=== PATIENT | female | born 1935 | race American Indian/Alaskan Native ===

== ENCOUNTER 2017-08-28 08:51 | Inpatient (IN) | payer MEDICARE ==
[2017-08-28 10:18] LABS: Alanine Aminotransferase 11 units/L (7-56); Albumin/Globulin Ratio 1.4 %; Alkaline Phosphatase 67 units/L (35-129); BUN/Creatinine Ratio 25; Blood Urea Nitrogen 27 mg/dL (7-17); Calcium 9.4 mg/dL (8.4-10.2); Carbon Dioxide 21 mmol/L (22-30); Glucose 134 mg/dL (65-100); Total Protein 6.8 g/dL (6.3-8.2)
[2017-08-28 10:19] LABS: Anion Gap 21 mmol/L; Chloride 104.3 mmol/L (98-107); Potassium 4.3 mmol/L (3.6-5.0); Sodium 142 mmol/L (137-145)
[2017-08-28] MEDS ORDERED: NITRO-BID 2% TP ONE (10:21)
[2017-08-28] MEDS ORDERED: ASPIRIN PO ONE (10:21)
--- NOTE | 2017-08-28 10:26 | Emergency Department Report ---
HPI - General Chief Complaint: Chest Pain Time Seen by Provider: 08/28/17 10:11 - HPI HPI: Room 5 The patient is an 81-year-old female presenting with chief complaint of chest pain. The patient states her symptoms began last night with substernal chest pain described as "gas pain." Patient states she began feeling dizzy and had nausea without vomiting associated with shortness of breath. Patient denies diaphoresis. Patient states her last stress test 2 years ago. Patient status post CABG in 2005. Patient states she had her last AR 2012 Location: Chest, see above Duration: Intermittent since last night Quality: "Gas" Severity: Currently 0/10 Modifying factors: [see above] Context: [see above] Mode of transportation: [not driving] ED Past Medical Hx - Past Medical History Previous Medical History?: Yes Hx Hypertension: Yes Hx Heart Attack/AMI: Yes (X 2) Hx Diabetes: Yes (Not on medication) Hx Arthritis: Yes Additional medical history: Gout, Carotid blockage. - Surgical History Past Surgical History?: Yes Hx Open Heart Surgery: Yes - Family History Family history: no significant - Social History Smoking Status: Former Smoker (none 30 years) Substance Use Type: None - Medications Home Medications: Home Medications Medication Instructions Recorded Confirmed Last Taken Type Amlodipine Besylate [Norvasc] 5 mg PO QDAY 08/28/17 08/28/17 08/27/17 History Aspirin [Adult Low Dose Aspirin EC] 81 mg PO QDAY 08/28/17 08/28/17 08/27/17 History Cholecalciferol (Vitamin D3) 5,000 unit PO QDAY 08/28/17 08/28/17 08/27/17 History [Vitamin D3] Clopidogrel Bisulfate [Plavix] 75 mg PO DAILY 08/28/17 08/28/17 08/27/17 History Colchicine [Colcrys] 0.6 mg PO BID 08/28/17 08/28/17 08/27/17 History Cyanocobalamin (Vitamin B-12) 2,000 mcg PO QDAY 08/28/17 08/28/17 08/27/17 History [Vitamin B-12] Docusate Sodium [Stool Softener] 100 mg PO QDAY 08/28/17 08/28/17 08/27/17 History Ferrous Sulfate [Iron] 325 mg PO QDAY 08/28/17 08/28/17 08/27/17 History Simvastatin [Zocor TAB] 20 mg PO QHS 08/28/17 08/28/17 08/27/17 History hydrALAZINE [Apresoline] 25 mg PO QID 08/28/17 08/28/17 08/27/17 History ED Review of Systems ROS: Stated complaint: HBP Other details as noted in HPI Constitutional: denies: diaphoresis Respiratory: shortness of breath Cardiovascular: chest pain Gastrointestinal: nausea. denies: vomiting Physical Exam - Physical Exam Vital Signs: Vital Signs 08/28/17 08/28/17 08/28/17 09:04 09:13 09:16 Temperature Pulse Rate 77 79 Respiratory 13 16 13 Rate Blood Pressure 178/84 178/84 O2 Sat by Pulse 99 100 Oximetry 08/28/17 08/28/17 09:17 09:43 Temperature 98.2 F Pulse Rate 74 Respiratory 16 Rate Blood Pressure 178/85 O2 Sat by Pulse 96 Oximetry Physical Exam: GENERAL: The patient is well-developed well-nourished female sitting on stretcher not appearing to be in acute distress. [] HEENT: Normocephalic. Atraumatic. Extraocular motions are intact. Patient has moist mucous membranes. NECK: Supple. Trachea midline CHEST/LUNGS: Clear to auscultation. There is no respiratory distress noted. HEART/CARDIOVASCULAR: Regular. There is no tachycardia. There is no gallop rub or murmur. ABDOMEN: Abdomen is soft, nontender. Patient has normal bowel sounds. There is no abdominal distention. SKIN: There is no rash. There is no diaphoresis. NEURO: The patient is awake, alert, and oriented. The patient is cooperative. The patient has normal speech MUSCULOSKELETAL: There is no evidence of acute injury. ED Course Vital Signs 08/28/17 08/28/17 08/28/17 09:04 09:13 09:16 Temperature Pulse Rate 77 79 Respiratory 13 16 13 Rate Blood Pressure 178/84 178/84 O2 Sat by Pulse 99 100 Oximetry 08/28/17 08/28/17 09:17 09:43 Temperature 98.2 F Pulse Rate 74 Respiratory 16 Rate Blood Pressure 178/85 O2 Sat by Pulse 96 Oximetry ED Medical Decision Making - Lab Data Result diagrams: 08/28/17 10:30 08/28/17 09:40 - EKG Data -: EKG Interpreted by Me EKG shows normal: sinus rhythm Rate: normal - EKG Data When compared to previous EKG there are: previous EKG unavailable Interpretation: other (first-degree AV block) - Radiology Data Radiology results: report reviewed (chest x-ray), image reviewed (chest x-ray) interpreted by me: Chest x-ray-no focal infiltrates, no pneumothorax AP CHEST: HISTORY: chest pain Previous CABG changes are noted. AP view of the chest demonstrates a normal mediastinal and cardiac contour with clear lungs and normal bony and soft tissue structures. IMPRESSION: No acute cardiopulmonary process identified. Transcribed By: TTR Dictated By: TANVIR ROSADO JR, MD Electronically Authenticated By: TANVIR ROSADO JR, MD Signed Date/Time: 08/28/171043 DD/ 43 TD/TT: 08/28/171043 - Differential Diagnosis ACS, GERD, pericarditis Critical care attestation.: If time is entered above; I have spent that time in minutes in the direct care of this critically ill patient, excluding procedure time. ED Disposition Clinical Impression: Chest pain Disposition: -09 OP ADMIT IP TO THIS HOSP Is pt being admited?: Yes Does the pt Need Aspirin: Yes Condition: Fair Instructions: Chest Pain (ED) Referrals: PRIMARY CARE, [Primary Care Provider] - 3-5 Days Time of Disposition: 11:05 (hospitalist paged (Dr. Miranda))
--- NOTE | 2017-08-28 10:49 | XRay Report ---
AP CHEST: HISTORY: chest pain Previous CABG changes are noted. AP view of the chest demonstrates a normal mediastinal and cardiac contour with clear lungs and normal bony and soft tissue structures. IMPRESSION: No acute cardiopulmonary process identified.
[2017-08-28 10:53] LABS: Basophils % (Auto) 0.4 % (0.0-1.8); Eosinophils % (Auto) 2.8 % (0.0-4.3); Hematocrit 34.3 % (30.3-42.9); Hemoglobin 10.8 gm/dl (10.1-14.3); Mean Corpuscular HGB Conc 32 % (30-34); Mean Corpuscular Hemoglobin 29 pg (28-32); Mean Corpuscular Volume 91 fl (79-97); Platelet Count 182 K/mm3 (140-440); Red Blood Count 3.77 M/mm3 (3.65-5.03); White Blood Count 5.3 K/mm3 (4.5-11.0)
--- NOTE | 2017-08-28 13:13 | History and Physical Report ---
History of Present Illness Date of admission: 08/28/17 11:53 Chief complaint: I have pain in my chest History of present illness: 81 YO Female with HTN, [place], DM, OA, CAD S/P CABG presents to ED for evaluation. Pt states that she has pain in her chest. The patient states her symptoms began last night and have continued since it began. Pain is 3-6/10, substernal, intermittent, nonradiating, not worsened with exertion, or relieved with rest. Pt acknowledges feeling dizzy, nauseated, and short of breath. Pt denies diaphoresis, palpitations, syncope, BRBPR, recent ill contacts, productive cough , hemoptysis, unintentional weight loss, night sweats. Pt seen and evaluated in ED and found to have symptoms consistent with ACS. Pt admitted to telemetry. Past History Past Medical History: acute [place], arthritis, CAD, diabetes, hypertension Past Surgical History: CABG Social history: Family history: diabetes, hypertension Medications and Allergies Allergies Allergy/AdvReac Type Severity Reaction Status Date / Time No Known Allergies Allergy Unverified 08/28/17 09:28 Home Medications Medication Instructions Recorded Confirmed Last Taken Type Amlodipine Besylate [Norvasc] 5 mg PO QDAY 08/28/17 08/28/17 08/27/17 History Aspirin [Adult Low Dose Aspirin EC] 81 mg PO QDAY 08/28/17 08/28/17 08/27/17 History Cholecalciferol (Vitamin D3) 5,000 unit PO QDAY 08/28/17 08/28/17 08/27/17 History [Vitamin D3] Clopidogrel Bisulfate [Plavix] 75 mg PO DAILY 08/28/17 08/28/17 08/27/17 History Colchicine [Colcrys] 0.6 mg PO BID 08/28/17 08/28/17 08/27/17 History Cyanocobalamin (Vitamin B-12) 2,000 mcg PO QDAY 08/28/17 08/28/17 08/27/17 History [Vitamin B-12] Docusate Sodium [Stool Softener] 100 mg PO QDAY 08/28/17 08/28/17 08/27/17 History Ferrous Sulfate [Iron] 325 mg PO QDAY 08/28/17 08/28/17 08/27/17 History Simvastatin [Zocor TAB] 20 mg PO QHS 08/28/17 08/28/17 08/27/17 History hydrALAZINE [Apresoline] 25 mg PO QID 08/28/17 08/28/17 08/27/17 History Review of Systems Constitutional: no weight loss, no weight gain, no fever, no chills Ears, nose, mouth and throat: no ear pain, no ear discharge, no tinnitis, no decreased hearing, no nose pain, no nasal congestion, no nasal discharge Breasts: no change in shape, no swelling, no mass Cardiovascular: chest pain, shortness of breath, no orthopnea, no palpitations, no rapid/irregular heart beat, no dyspnea on exertion Respiratory: no cough, no cough with sputum, no excessive sputum, no hemoptysis Gastrointestinal: no abdominal pain, no nausea, no vomiting, no diarrhea, no constipation Genitourinary Female: no dysmenorrhea, no pelvic pain, no flank pain, no menorrhagia, no dysuria, no urinary frequency, no urgency Rectal: no pain, no incontinence, no bleeding Musculoskeletal: no neck stiffness, no neck pain, no shooting arm pain, no arm numbness/tingling Integumentary: no rash, no pruritis, no redness, no sores, no wounds Neurological: no paralysis, no weakness, no parathesias, no numbness, no tingling, no seizures Psychiatric: no memory loss, no change in sleep habits, no sleep disturbances, no insomnia, no hypersomnia, no change in appetite, no change in libido Endocrine: no cold intolerance, no heat intolerance, no polyphagia, no excessive thirst, no polydipsia, no polyuria Hematologic/Lymphatic: no easy bruising, no easy bleeding Allergic/Immunologic: no urticaria, no allergic rhinitis, no wheezing Exam - Constitutional Vitals: Temp Pulse Resp BP Pulse Ox 98.2 F 68 17 131/76 100 08/28/17 09:17 08/28/17 12:30 08/28/17 12:30 08/28/17 12:30 08/28/17 12:30 General appearance: Present: mild distress - EENT Eyes: Present: PERRL ENT: hearing intact, clear oral mucosa - Neck Neck: Present: supple, normal ROM - Respiratory Respiratory: bilateral: diminished, rhonchi - Cardiovascular Heart Sounds: Present: S1 & S2. Absent: rub, click - Extremities Extremities: pulses symmetrical, No edema Peripheral Pulses: within normal limits - Abdominal General gastrointestinal: Present: soft, non-tender, non-distended, normal bowel sounds Female genitourinary: Present: normal - Integumentary Integumentary: Present: clear, warm, dry - Musculoskeletal Musculoskeletal: gait normal, strength equal bilaterally - Psychiatric Psychiatric: appropriate mood/affect, intact judgment & insight - Neurologic Neurologic: CNII-XII intact, moves all extremities Results - Labs CBC & Chem 7: 08/28/17 10:30 08/28/17 09:40 Labs: Abnormal lab results 08/28/17 08/28/17 Range/Units 09:40 10:30 RDW 13.0 L (13.2-15.2) % [place] % (Auto) 7.8 H (0.0-7.3) % Lymph # 0.8 L (1.2-5.4) K/mm3 Seg Neutrophils % 73.3 H (40.0-70.0) % Carbon Dioxide 21 L (22-30) mmol/L BUN 27 H (7-17) mg/dL Glucose 134 H (65-100) mg/dL Assessment and Plan - Patient Problems (1) ACS (acute coronary syndrome) Current Visit: Yes Status: Acute Plan to address problem: Admit to telemetry, serial cardiac enzymes, EKG, Echo, D dimer, Cardiology consulted, morphine, supplemental oxygen, nitro tabs, aspirin (2) HTN (hypertension) Current Visit: Yes Status: Acute Plan to address problem: Monitor bp q shift, IV hydralazine prn, (3) Diabetes Current Visit: Yes Status: Acute Plan to address problem: ADA diet, insulin, accu check (4) CAD (coronary artery disease) Current Visit: Yes Status: Acute Plan to address problem: Lipid panel, low cholesterol diet, statin therapy (5) DVT prophylaxis Current Visit: Yes Status: Acute
[2017-08-28] MEDS ORDERED: SODIUM CHLORIDE FLUSH SYRINGE 10 ML IV PRN (18:38)
[2017-08-28] MEDS ORDERED: NITROSTAT SL PRN (18:38)
[2017-08-28 19:19] LABS: Basophils % (Auto) 0.6 % (0.0-1.8); Eosinophils % (Auto) 2.6 % (0.0-4.3); Hematocrit 36.2 % (30.3-42.9); Hemoglobin 11.3 gm/dl (10.1-14.3); Mean Corpuscular HGB Conc 31 % (30-34); Mean Corpuscular Hemoglobin 29 pg (28-32); Mean Corpuscular Volume 92 fl (79-97); Platelet Count 189 K/mm3 (140-440); Red Blood Count 3.93 M/mm3 (3.65-5.03); White Blood Count 6.1 K/mm3 (4.5-11.0)
[2017-08-28 19:40] LABS: Calcium 9.4 mg/dL (8.4-10.2); Chloride 103.6 mmol/L (98-107); Potassium 4.3 mmol/L (3.6-5.0)
[2017-08-29] MEDS ORDERED: HALFPRIN EC PO SCH (10:00)
[2017-08-29] MEDS ORDERED: COLCRYS PO SCH (10:00)
[2017-08-29] MEDS ORDERED: VITAMIN B-12 PO SCH (10:00)
[2017-08-29] MEDS ORDERED: ECOTRIN PO SCH (10:00)
[2017-08-29] MEDS ORDERED: VITAMIN D3 PO SCH (10:00)
[2017-08-29] MEDS ORDERED: COLACE PO SCH (10:00)
[2017-08-29] MEDS ORDERED: NON-FORMULARY (Cholecalciferol (Vitamin D3) [Vitamin D3] 5,000 UNIT) PO SCH (10:00)
[2017-08-29] MEDS ORDERED: FEOSOL PO SCH (10:00)
[2017-08-29] MEDS ORDERED: NORVASC PO SCH (10:00)
[2017-08-29] MEDS ORDERED: PLAVIX PO SCH (10:00)
[2017-08-29] MEDS ORDERED: CYANOCOBALAMIN 2000 MCG PO SCH (10:00)
[2017-08-29] MEDS ORDERED: LEXISCAN IV ONE ×2 (11:04→11:07)
--- NOTE | 2017-08-29 12:20 | Consultation ---
History of Present Illness Consult date: 08/29/17 Consult reason: chest pain History of present illness: 81 YO Female with HTN, [place], DM, OA, CAD S/P CABG presents with chest pain and dizziness. Patient is s/p CABG 2005. She is currently asymptomatic Past History Past Medical History: acute [place], arthritis, CAD, diabetes, hypertension Past Surgical History: CABG Social history: Family history: diabetes, hypertension Medications and Allergies Allergies Allergy/AdvReac Type Severity Reaction Status Date / Time zolpidem [From Ambien] AdvReac Unknown Verified 08/29/17 07:28 Home Medications Medication Instructions Recorded Confirmed Last Taken Type Amlodipine Besylate [Norvasc] 5 mg PO QDAY 08/28/17 08/28/17 08/27/17 History Aspirin [Adult Low Dose Aspirin EC] 81 mg PO QDAY 08/28/17 08/28/17 08/27/17 History Cholecalciferol (Vitamin D3) 5,000 unit PO QDAY 08/28/17 08/28/17 08/27/17 History [Vitamin D3] Clopidogrel Bisulfate [Plavix] 75 mg PO DAILY 08/28/17 08/28/17 08/27/17 History Colchicine [Colcrys] 0.6 mg PO BID 08/28/17 08/28/17 08/27/17 History Cyanocobalamin (Vitamin B-12) 2,000 mcg PO QDAY 08/28/17 08/28/17 08/27/17 History [Vitamin B-12] Docusate Sodium [Stool Softener] 100 mg PO QDAY 08/28/17 08/28/17 08/27/17 History Ferrous Sulfate [Iron] 325 mg PO QDAY 08/28/17 08/28/17 08/27/17 History Simvastatin [Zocor TAB] 20 mg PO QHS 08/28/17 08/28/17 08/27/17 History hydrALAZINE [Apresoline] 25 mg PO QID 08/28/17 08/28/17 08/27/17 History Active Meds: Active Medications Amlodipine Besylate (Norvasc) 5 mg PO QDAY [facility] Last Admin: 08/29/17 12:09 Dose: Not Given Aspirin (Ecotrin) 325 mg PO QDAY [facility] Last Admin: 08/29/17 12:09 Dose: Not Given Aspirin (Halfprin Ec) 81 mg PO QDAY [facility] Last Admin: 08/29/17 12:09 Dose: Not Given Cholecalciferol (Vitamin D3) 5,000 unit PO DAILY [facility] Last Admin: 08/29/17 12:09 Dose: Not Given Clopidogrel Bisulfate (Plavix) 75 mg PO DAILY [facility] Last Admin: 08/29/17 12:09 Dose: Not Given Colchicine (Colcrys) 0.6 mg PO BID [facility] Last Admin: 08/29/17 12:08 Dose: Not Given Cyanocobalamin (Vitamin B-12) 2,000 mcg PO QDAY [facility] Last Admin: 08/29/17 12:09 Dose: Not Given Docusate Sodium (Colace) 100 mg PO QDAY [facility] Last Admin: 08/29/17 12:08 Dose: Not Given Ferrous Sulfate (Feosol) 325 mg PO QDAY [facility] Last Admin: 08/29/17 12:09 Dose: Not Given Nitroglycerin (Nitrostat) 0.4 mg SL Q5M PRN PRN Reason: Chest Pain Pravastatin Sodium (Pravachol) 40 mg PO QHS [facility] Sodium Chloride (Sodium Chloride Flush Syringe 10 Ml) 10 ml IV PRN PRN PRN Reason: LINE FLUSH Review of Systems All systems: negative Physical Examination Vital Signs BP Pulse Ox 100/51 97 08/28/17 07:03 08/28/17 07:03 General appearance: no acute distress HEENT: Positive: PERRL Neck: Positive: neck supple Cardiac: Positive: Reg Rate and Rhythm Lungs: Positive: Normal Exam Results 08/28/17 19:04 08/28/17 19:04 Lipids 08/28/17 Range/Units 19:04 Triglycerides 98 (2-149) mg/dL Cholesterol 128 (50-199) mg/dL HDL Cholesterol 58 (40-59) mg/dL Cholesterol/HDL Ratio 2.20 % CBC 08/28/17 Range/Units 19:04 WBC 6.1 (4.5-11.0) K/mm3 RBC 3.93 (3.65-5.03) M/mm3 Hgb 11.3 (10.1-14.3) gm/dl Hct 36.2 (30.3-42.9) % Plt Count 189 (140-440) K/mm3 Lymph # 2.0 (1.2-5.4) K/mm3 [place] # 0.6 (0.0-0.8) K/mm3 Eos # 0.2 (0.0-0.4) K/mm3 Baso # 0.0 (0.0-0.1) K/mm3 Comprehensive Metabolic Panel 08/28/17 Range/Units 19:04 Sodium 143 (137-145) mmol/L Potassium 4.3 (3.6-5.0) mmol/L Chloride 103.6 (98-107) mmol/L Carbon Dioxide 24 (22-30) mmol/L BUN 24 H (7-17) mg/dL Creatinine 1.1 (0.7-1.2) mg/dL Glucose 88 (65-100) mg/dL Calcium 9.4 (8.4-10.2) mg/dL EKG interpretations - Telemetry EKG Rhythm: Sinus Rhythm Assessment and Plan Chest Pain Normal MPI this admission with a LVEF > 60% Dizziness First degree AV block on ECG - no pauses Typ0e II DM Systemic Hypertension CAD s/p CABG 2005 Recommendations: No further cardiac work-up Follow-up with Dr Kate as outpatient
[2017-08-29 12:45] VITALS: BP 198/82
--- NOTE | 2017-08-29 13:58 | Discharge Summary ---
Providers - Providers Date of Admission: 08/28/17 11:53 Date of discharge: 08/29/17 Attending physician: CELSO MANZO MD 08/28/17 Consult to Cardiac Rehabilitation [CONS] Routine Reason For Exam: Phase I 08/28/17 18:38 Consult to Cardiology [CONS] Routine Consulting Provider: CHAD PANDEY Reason For Exam: acs Primary care physician: MEDICAID BILLING CLERK Hospitalization Condition: Fair Pertinent studies: Chest x-ray revealed no acute cardiopulmonary process Procedures: Normal MPI with LVEF> 60%. Hospital course: 81 YO Female with HTN, [place], DM, OA, CAD S/P CABG presents to ED for evaluation. Pt states that she has pain in her chest. The patient states her symptoms began last night and have continued since it began. Pain is 3-6/10, substernal, intermittent, nonradiating, not worsened with exertion, or relieved with rest. Pt acknowledges feeling dizzy, nauseated, and short of breath. Pt denies diaphoresis, palpitations, syncope, BRBPR, recent ill contacts, productive cough , hemoptysis, unintentional weight loss, night sweats. Patient was treated with Nitro-Bid and resumed home medications. Patient was clinically stable for discharge. Discharge diagnoses Chest pain Dizziness Type 2 diabetes Systemic hypertension Coronary artery disease DVT prophylaxis Disposition: DC-01 TO HOME OR SELFCARE Time spent for discharge: 32 mins Core Measure Documentation - Palliative Care Palliative Care/ Comfort Measures: Not Applicable - Core Measures Any of the following diagnoses?: none Exam - Constitutional Vitals: Temp Pulse Resp BP Pulse Ox 98.4 F 92 H 18 198/82 100 08/29/17 08:28 08/29/17 11:22 08/29/17 10:00 08/29/17 11:22 08/29/17 10:00 General appearance: Present: no acute distress - EENT Eyes: Present: PERRL ENT: hearing intact, clear oral mucosa - Neck Neck: Present: supple, normal ROM - Respiratory Respiratory effort: normal Respiratory: bilateral: CTA - Cardiovascular Heart Sounds: Present: S1 & S2. Absent: rub, click - Extremities Extremities: pulses symmetrical, No edema Peripheral Pulses: within normal limits - Abdominal General gastrointestinal: Present: soft, non-tender, non-distended, normal bowel sounds Female genitourinary: Present: deferred - Rectal Rectal Exam: deferred - Integumentary Integumentary: Present: clear, warm, dry - Musculoskeletal Musculoskeletal: gait normal, strength equal bilaterally - Psychiatric Psychiatric: appropriate mood/affect, intact judgment & insight - Neurologic Neurologic: CNII-XII intact, moves all extremities - Allied Health Allied health notes reviewed: nursing Plan Activity: fall precautions Weight Bearing Status: Weight Bear as Tolerated Diet: low fat, low cholesterol, low salt Follow up with: PRIMARY CAREMD [Primary Care Provider] - 3-5 Days CHAD PANDEY MD [Staff Physician] - 7 Days Prescriptions: amLODIPine [Norvasc] 5 mg PO QDAY #30 tablet
[2017-08-29] MEDS ORDERED: NON-FORMULARY (Simvastatin 20 MG) PO SCH (22:00)
[2017-08-29] MEDS ORDERED: PRAVACHOL PO SCH (22:00)
--- NOTE | 2017-08-30 00:31 | Treadmill Report ---
ORDERING PHYSICIAN: Elzbieta Carballo MD FINDINGS: There is no scintigraphic evidence of myocardial ischemia. The left ventricle is normal in size and systolic function. The left ventricular ejection fraction is measured at greater than 60%. Normal wall motion and wall thickening is noted on gated imaging. CONCLUSION: Normal perfusion scan. JOB# [id number] MARITZA/NTS
--- NOTE | 2017-09-10 09:12 | Query- Chest Pain ---
Abel Murry Ruben Date: 09/10/17 Smokehouse Operator/CDS: Jose Rsamantha / [place] Phone#:[phone] Exercise your independent professional judgment when responding to query. Questions asked do not imply a particular answer is desired or expected. We greatly appreciate your clarification on this issue. Clinical Documentation States: 81 year old female was admitted on 08/28/17 The H&P (Dr. Miranda) states " 81 YO Female with HTN, [place], DM, OA, CAD S/P CABG presents to ED for evaluation. Pt states that she has pain in her chest - Patient Problems (1) ACS (acute coronary syndrome) (4) CAD (coronary artery disease) " The Discharge summary ([place]) states " Discharge diagnoses Chest pain " Please document the etiology of Chest Pain: [ ] Myocardial Infarction [ ] Pneumonia [ ] Mediastinitis [ ] Costochondritis [ ] Pulmonary Embolism [ x] Coronary Artery Disease [ ] GERD [ ] Other: [ ] Comment/Explanation: Present on Admission: [x ] Yes (Y) [ ] Clinically undeterminable (W) [ ] No(N) Please document response in your Progress Notes and/or Discharge Summary and indicate if the condition was present on admission. DAVID
== END 2017-08-29 14:27 | disposition home or self-care (01) | DRG 305 ==
LOC: ED 08:51 → 4A 11:53 → EEVIPCON 11:53 → 4A 12:28
PROVIDERS: ADMIT Internal Medicine; ATTEND Internal Medicine
DX: I16.0 Hypertensive urgency (principal); I25.10 Atherosclerotic heart disease of native coronary artery without angina pectoris; I10 Essential (primary) hypertension; E11.9 Type 2 diabetes mellitus without complications; Z88.8 Allergy status to other drugs, medicaments and biological substances; I25.2 Old myocardial infarction; M10.9 Gout, unspecified; Z87.891 Personal history of nicotine dependence; Z79.82 Long term (current) use of aspirin; Z79.899 Other long term (current) drug therapy; Z83.3 Family history of diabetes mellitus; Z82.49 Family history of ischemic heart disease and other diseases of the circulatory system; I44.0 Atrioventricular block, first degree
CPT/HCPCS: 36415; 71010; 78452; 80048; 80053; 80061; 82962; 84484; 85025; 85379; 93005; 93010; 93017; 93306; A9502; J2785

== ENCOUNTER 2020-05-16 14:39 | Emergency (ER) | payer MEDICARE ==
--- NOTE | 2020-05-16 15:31 | Emergency Department Report ---
ED General Adult HPI - General Chief complaint: Dyspnea/Respdistress Stated complaint: TORRI/BODY ACHES/CONSTIPATION Time Seen by Provider: 05/16/20 15:22 Source: patient, EMS Mode of arrival: Stretcher Limitations: Altered Mental Status - History of Present Illness Initial comments: Patient is 84 years old female with history of dementia, hypertension diabetes and arthritis. Patient brought to the emergency room via EMS from home for evaluation of shortness of breath and constipation. Patient is really confused and unable to answer question appropriately I believe is most likely secondary to her dementia. No family member available to provide more information. Patient denied chest pain, nausea or vomiting. She stated that she is having slight shortness of breath but she has been constipated for many days. - Related Data Home Medications Medication Instructions Recorded Confirmed Last Taken Amlodipine Besylate [Norvasc] 5 mg PO QDAY 08/28/17 08/28/17 08/27/17 Aspirin [Adult Low Dose Aspirin EC] 81 mg PO QDAY 08/28/17 08/28/17 08/27/17 Cholecalciferol (Vitamin D3) 5,000 unit PO QDAY 08/28/17 08/28/17 08/27/17 [Vitamin D3 5,000 UNIT] Clopidogrel Bisulfate [Plavix] 75 mg PO DAILY 08/28/17 08/28/17 08/27/17 Colchicine [Colcrys] 0.6 mg PO BID 08/28/17 08/28/17 08/27/17 Cyanocobalamin (Vitamin B-12) 2,000 mcg PO QDAY 08/28/17 08/28/17 08/27/17 [Vitamin B-12] Docusate Sodium [Stool Softener] 100 mg PO QDAY 08/28/17 08/28/17 08/27/17 Ferrous Sulfate [Iron 325 MG] 325 mg PO QDAY 08/28/17 08/28/17 08/27/17 Simvastatin (Nf) [Zocor TAB] 20 mg PO QHS 08/28/17 08/28/17 08/27/17 hydrALAZINE [Apresoline TAB] 25 mg PO QID 08/28/17 08/28/17 08/27/17 Previous Rx's Medication Instructions Recorded Last Taken Type amLODIPine 5 mg PO QDAY #30 tablet 08/29/17 Unknown Rx Allergies Allergy/AdvReac Type Severity Reaction Status Date / Time zolpidem [From Ambien] AdvReac Unknown Verified 08/29/17 07:28 ED Review of Systems ROS: Stated complaint: TORRI/BODY ACHES/CONSTIPATION Other details as noted in HPI Comment: All other systems reviewed and negative Constitutional: denies: chills, fever Respiratory: shortness of breath. denies: cough, orthopnea, SOB with exertion, SOB at rest, wheezing Cardiovascular: denies: chest pain, palpitations, dyspnea on exertion Gastrointestinal: constipation. denies: abdominal pain, nausea, vomiting, d iarrhea, hematemesis, melena, hematochezia Musculoskeletal: denies: back pain Neurological: confusion. denies: headache, weakness, numbness, paresthesias ED Past Medical Hx - Past Medical History Hx Hypertension: Yes Hx Heart Attack/AMI: Yes (X 2) Hx Diabetes: Yes (Not on medication) Hx Arthritis: Yes Hx Seizures: No Hx Dementia: Yes Additional medical history: Gout, Carotid blockage. - Surgical History Hx Open Heart Surgery: Yes - Social History Smoking Status: Unknown if ever smoked - Medications Home Medications: Home Medications Medication Instructions Recorded Confirmed Last Taken Type Amlodipine Besylate [Norvasc] 5 mg PO QDAY 08/28/17 08/28/17 08/27/17 History Aspirin [Adult Low Dose Aspirin EC] 81 mg PO QDAY 08/28/17 08/28/17 08/27/17 History Cholecalciferol (Vitamin D3) 5,000 unit PO QDAY 08/28/17 08/28/17 08/27/17 History [Vitamin D3 5,000 UNIT] Clopidogrel Bisulfate [Plavix] 75 mg PO DAILY 08/28/17 08/28/17 08/27/17 History Colchicine [Colcrys] 0.6 mg PO BID 08/28/17 08/28/17 08/27/17 History Cyanocobalamin (Vitamin B-12) 2,000 mcg PO QDAY 08/28/17 08/28/17 08/27/17 History [Vitamin B-12] Docusate Sodium [Stool Softener] 100 mg PO QDAY 08/28/17 08/28/17 08/27/17 History Ferrous Sulfate [Iron 325 MG] 325 mg PO QDAY 08/28/17 08/28/17 08/27/17 History Simvastatin (Nf) [Zocor TAB] 20 mg PO QHS 08/28/17 08/28/17 08/27/17 History hydrALAZINE [Apresoline TAB] 25 mg PO QID 08/28/17 08/28/17 08/27/17 History amLODIPine 5 mg PO QDAY #30 tablet 08/29/17 Unknown Rx ED Physical Exam - General Limitations: Altered Mental Status General appearance: alert, in no apparent distress - Head Head exam: Present: atraumatic, normocephalic, normal inspection - Eye Eye exam: Present: normal appearance - ENT ENT exam: Present: normal exam, normal orophraynx, mucous membranes moist - Neck Neck exam: Present: normal inspection, full ROM. Absent: tenderness, meningismus, lymphadenopathy, thyromegaly - Respiratory Respiratory exam: Present: normal lung sounds bilaterally - Cardiovascular Cardiovascular Exam: Present: regular rate, normal rhythm, normal heart sounds - GI/Abdominal GI/Abdominal exam: Present: soft, normal bowel sounds. Absent: distended, tenderness, guarding, rebound, rigid, organomegaly, mass, bruit, pulsatile mass, hernia - Extremities Exam Extremities exam: Present: normal inspection, full ROM, normal capillary refill. Absent: pedal edema - Back Exam Back exam: Present: normal inspection, full ROM. Absent: CVA tenderness (R), CVA tenderness (L) - Neurological Exam Neurological exam: Present: alert, oriented X3, CN II-XII intact - Psychiatric Psychiatric exam: Present: normal mood - Skin Skin exam: Present: warm, intact, normal color ED Course Vital Signs 05/16/20 05/16/20 05/16/20 14:58 15:12 15:16 Pulse Rate 74 Respiratory 16 Rate Blood Pressure 110/78 133/53 Blood Pressure [Right] O2 Sat by Pulse 96 100 94 Oximetry 05/16/20 05/16/20 05/16/20 15:39 15:40 15:42 Pulse Rate 79 79 Respiratory 15 18 Rate Blood Pressure Blood Pressure [Right] O2 Sat by Pulse 98 Oximetry 05/16/20 05/16/20 05/16/20 15:45 16:00 16:16 Pulse Rate 80 77 70 Respiratory 22 15 16 Rate Blood Pressure 143/52 156/62 137/60 Blood Pressure [Right] O2 Sat by Pulse 100 97 Oximetry 05/16/20 05/16/2005/16/20 16:30 16:46 17:00 Pulse Rate 67 81 73 Respiratory 17 12 14 Rate Blood Pressure 134/55 186/74 156/70 Blood Pressure [Right] O2 Sat by Pulse 99 Oximetry 05/16/20 05/16/20 17:16 17:27 Pulse Rate 63 63 Respiratory 14 16 Rate Blood Pressure 151/58 Blood Pressure 151/58 [Right] O2 Sat by Pulse 97 Oximetry ED Medical Decision Making - Lab Data Result diagrams: 05/16/20 15:38 05/16/20 15:38 - EKG Data -: EKG Interpreted by Nd EKG shows normal: sinus rhythm Rate: normal - EKG Data Interpretation: no acute changes - Radiology Data Radiology results: report reviewed - Medical Decision Making Patient is 84 years old female with history of dementia, hypertension diabetes and arthritis. Patient brought to the emergency room via EMS from home for evaluation of shortness of breath and constipation. Patient is really confused and unable to answer question appropriately I believe is most likely secondary to her dementia. No family member available to provide more information. Patient denied chest pain, nausea or vomiting. She stated that she is having slight shortness of breath but she has been constipated for many days. Patient remained stable in the emergency room with a stable vital sign and oxygen saturation of 98% on room air. Labs reviewed and is unremarkable. EKG is shows sinus rhythm with no ST elevation or depression. Chest x-ray is unremarkable. Abdominal x-ray shows significant fecal material throughout the colon indicating constipation. Patient will be discharged home with prescription for lactulose and Colace and advised to follow-up with her primary doctor in the next 2 to 3 days and to return to the ER if she develop any new symptoms. Critical care attestation.: If time is entered above; I have spent that time in minutes in the direct care of this critically ill patient, excluding procedure time. ED Disposition Clinical Impression: Shortness of breath, Constipation Disposition: DC-01 TO HOME OR SELFCARE Is pt being admited?: No Condition: Stable Instructions: Dyspnea (ED), Constipation (ED), High Fiber Diet (ED) Referrals: NAKITA TRAN MD [Primary Care Provider] - 3-5 Days
[2020-05-16 16:06] LABS: Basophils % (Auto) 0.4 % (0.0-1.8); Eosinophils # (Auto) 0.1 K/mm3 (0.0-0.4); Eosinophils % (Auto) 1.4 % (0.0-4.3); Hematocrit 36.2 % (30.3-42.9); Hemoglobin 11.7 gm/dl (10.1-14.3); Lymphocytes # (Auto) 1.2 K/mm3 (1.2-5.4); Lymphocytes % (Auto) 18.1 % (13.4-35.0); Mean Corpuscular HGB Conc 32 % (30-34); Mean Corpuscular Volume 94 fl (79-97); Monocytes # (Auto) 0.6 K/mm3 (0.0-0.8); Monocytes % (Auto) 8.7 % (0.0-7.3); Platelet Count 181 K/mm3 (140-440); Red Blood Count 3.84 M/mm3 (3.65-5.03); Red Cell Distribution Width 13.2 % (13.2-15.2)
[2020-05-16 16:16] LABS: INR 1.01 (0.87-1.13)
[2020-05-16 16:17] LABS: Partial Thromboplastin Time 28.4 Sec. (24.2-36.6)
--- NOTE | 2020-05-16 16:27 | XRay Report ---
Abdominal series with frontal chest 4 views INDICATION / CLINICAL INFORMATION: ABDOMINAL PAIN. COMPARISON: None available. FINDINGS: TUBES / LINES: None. BOWEL GAS PATTERN: No significant abnormality. FREE AIR / EXTRALUMINAL GAS: None seen. Chest: No significant additional findings. IMPRESSION: 1. No significant abnormality. Moderate to large stool burden identified throughout much of the colon . Signer Name: Adalberto Hannah MD Signed: 05/16/2020 4:23 PM Workstation Name: [id number]
[2020-05-16 16:28] LABS: Alanine Aminotransferase 16 units/L (7-56); Albumin 3.7 g/dL (3.9-5); BUN/Creatinine Ratio 17; Blood Urea Nitrogen 19 mg/dL (7-17); Calcium 9.3 mg/dL (8.4-10.2); Hemolysis Index 47
[2020-05-16 16:29] LABS: Bilirubin,Direct < 0.2 mg/dL (0-0.2)
[2020-05-16] MEDS ORDERED: SODIUM CHLORIDE 0.9% 500 ML 500 ML ONE (16:36)
[2020-05-16] MEDS ORDERED: SODIUM CHLORIDE 0.9% 500 ML 500 ML IV ONE (16:58)
[2020-05-16] MEDS ORDERED: FUROSEMIDE 40 MG/4 ML INJ IV ONE (18:48)
[2020-05-16 18:56] VITALS: BP 154/61
== END 2020-05-16 20:03 | disposition home or self-care (01) ==
LOC: ED 14:39
DX: R06.02 Shortness of breath (principal); K59.00 Constipation, unspecified; R41.0 Disorientation, unspecified; I10 Essential (primary) hypertension; E11.9 Type 2 diabetes mellitus without complications; I25.2 Old myocardial infarction; M13.88 Other specified arthritis, other site; M10.9 Gout, unspecified; F03.90 Unspecified dementia, unspecified severity, without behavioral disturbance, psychotic disturbance, mood disturbance, and anxiety; Z98.890 Other specified postprocedural states; Z79.899 Other long term (current) drug therapy; Z88.6 Allergy status to analgesic agent
CPT/HCPCS: 36415; 74022; 80048; 80076; 82140; 83880; 84484; 85025; 85610; 85730; 93005; 96360; 99284; J7040